=== PATIENT | male | born 1985 | race Two or more races ===

== ENCOUNTER 2023-07-05 01:18 | Emergency (ER) | payer SELFPAY ==
[~2023-07-05] VITALS: Ht 177.8 cm; Wt 75.0 kg
[2023-07-05 01:23] VITALS: BP 130/83; PULSE 92; RESP 18; TEMP 98.9; O2SAT 10
[2023-07-05] MEDS ORDERED: HYDR50CA PO (02:44)
[2023-07-05] MEDS: LORazepam 0.5 MG TAB PO ONE (03:08)
== END 2023-07-05 03:09 | disposition home or self-care (01) ==
LOC: ER 01:18
DX: F41.9 Anxiety disorder, unspecified (principal)